=== PATIENT | male | born 2000 | race Caucasian/White ===

== ENCOUNTER 2023-11-06 19:10 | Emergency (ER) | payer OTHER ==
[~2023-11-06] VITALS: Ht 182.9 cm; Wt 65.8 kg
[2023-11-06] MEDS ORDERED: SULTRIDS PO (22:58)
== END 2023-11-06 23:06 | disposition home or self-care (01) ==
LOC: ER 19:10
DX: S62.630B Displaced fracture of distal phalanx of right index finger, initial encounter for open fracture (principal); W27.0XXA Contact with workbench tool, initial encounter; Z88.0 Allergy status to penicillin
CPT/HCPCS: 73130